=== PATIENT | female | born 1945 | race Caucasian/White ===

== ENCOUNTER 2018-11-13 17:15 | Inpatient (IN) | payer OTHER ==
[~2018-11-13] VITALS: Ht 162.6 cm; Wt 49.9 kg
[2018-11-13 17:17] VITALS: BP 134/58
[2018-11-13 17:54] LABS: ABSOLUTE NEUTROPHILS 7.3 thou/uL (1.4-8.2); BASOPHILS 1.3 % (0.0-2.0); EOSINOPHILS 5.4 % (0.0-3.0); HEMATOCRIT 36.4 % (37.0-47.0); HEMOGLOBIN 12.1 gm/dL (12.0-15.0); LYMPHOCYTES 18.7 % (24.0-44.0); MCH 27.9 pg (26.0-34.0); MCHC 33.1 g/dL (28.0-37.0); MCV 84.1 fL (80.0-100.0); MONOCYTES 5.7 % (1.0-8.0); PLATELET COUNT 254 thou/uL (150-400); POLYS 68.9 % (36.0-66.0); RBC 4.32 mil/uL (4.20-5.00); RDW 17.4 % (10.5-14.5); WBC 10.6 thou/uL (4.0-11.0)
[2018-11-13 18:00] LABS: URINE BILIRUBIN NEGATIVE (Negative); URINE BLOOD 3+ (Negative); URINE CLARITY CLEAR; URINE COLOR YELLOW; URINE GLUCOSE-RANDOM* NEGATIVE (Negative); URINE KETONES NEGATIVE (Negative); URINE PROTEIN (DIPSTICK) 2+ (Negative); URINE SPECIFIC GRAVITY 1.015 (1.005-1.035); URINE UROBILINOGEN 0.2 E.U./dl (0.2-1.0)
[2018-11-13 18:01] LABS: CALCIUM 9.5 mg/dL (8.5-10.1); CREATININE 0.9 mg/dL (0.6-1.0); POTASSIUM 4.4 mmol/L (3.5-5.1)
[2018-11-13] MEDS ORDERED: AMARYL2 MG PO (18:02)
[2018-11-13] MEDS ORDERED: SPIRIVA INH (18:03)
[2018-11-13] MEDS ORDERED: ARIMIDEX PO (18:03)
[2018-11-13 18:05] LABS: URINE LEUKOCYTES-REFLEX 3+ (Negative); URINE NITRITE-REFLEX POSITIVE (Negative)
[2018-11-13] MEDS ORDERED: EFFEXOR XR37.5 MG PO (18:05)
[2018-11-13 18:06] LABS: SALICYLATE < 2.8 mg/dL (2.8-20.0)
[2018-11-13] MEDS ORDERED: CLARITIN10 MG PO (18:06)
[2018-11-13] MEDS ORDERED: IBUPROFEN 400400 M2 PO (18:07)
[2018-11-13] MEDS ORDERED: ONDANSETRON HCL4 M2 PO (18:07)
[2018-11-13] MEDS ORDERED: HYDROXYZINE HCL25 M1 PO (18:07)
[2018-11-13 18:08] LABS: ALBUMIN 3.2 g/dL (3.4-5.0); TOTAL BILIRUBIN 0.3 mg/dL (<0.1-1.0); TOTAL PROTEIN 6.7 g/dL (6.4-8.2)
[2018-11-13] MEDS ORDERED: SALINE NASAL SP88 ML NASAL (18:08)
[2018-11-13 18:09] LABS: AMP/METHAMP Negative (Negative); BARBITURATES Negative (Negative); BENZODIAZEPINES Negative (Negative); COCAINE Negative (Negative); METHADONE Negative (Negative); OPIATES POSITIVE (Negative); PCP Negative (Negative)
[2018-11-13] MEDS ORDERED: QUETIAPINE FUM100 MG PO (18:09)
[2018-11-13] MEDS ORDERED: ARICEPT 5 MG TAB5 MG PO (18:09)
[2018-11-13] MEDS ORDERED: CHOLESTYRAMINE P4 GM PO (18:10)
[2018-11-13] MEDS ORDERED: GABAPENTIN 100100 MG PO (18:11)
[2018-11-13] MEDS ORDERED: ACETAMINOPHEN-1 EAC1 PO (18:12)
[2018-11-13] MEDS ORDERED: COMPAZINE10 MG PO (18:12)
[2018-11-13] MEDS ORDERED: ATIVAN1 MG PO (18:13)
[2018-11-13] MEDS ORDERED: VANCOCIN 125 M125 M1 PO (18:14)
[2018-11-13] MEDS ORDERED: BUSPIRONE HCL10 MG PO (18:14)
[2018-11-13 18:16] LABS: SQUAMOUS 0-3 Few /LPF (0-3)
[2018-11-13 18:17] LABS: BACTERIA-REFLEX 1-9 Few /HPF (None Seen); CASTS None Seen /LPF (None Seen); CRYSTALS None Seen /LPF (None Seen); WBC CLUMPS Few (None Seen)
[2018-11-13 19:35] VITALS: BP 134/44
[2018-11-13 21:52] VITALS: BP 146/87
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
[2018-11-14 07:15] VITALS: BP 110/66
--- NOTE | 2018-11-14 08:25 | EKG ---
[address] [place] [address] ELECTROCARDIOGRAM REPORT Name: JOHN MORAN Room #: [facility]- ADM IN M.R.#: [id number] ������������������ Admission: 11/13/18 ������������������ Attend Phys: Zane Tyler DO Discharge: ������������������ Date of : 41 Report #: [id number] ����������������������������������������������������������������� [id number] THIS REPORT FOR: //name// [facility] ED Test Date: 2018-11-13 Test Time: 17:39:18 Pat Name: JOHN MORAN Department: Room: [facility] Gender: F Nurse Staff [facility]: ÁNGEL : 1945 Requested By: Reid Ramos Order Number: [id number] MD: Akil Storey Measurements Intervals [place] Rate: 87 P: 68 OR: 166 QRS: 73 QRSD: 193 T: 19 QT: 361 QTc: 435 Interpretive Statements Sinus rhythm Nonspecific T-wave abnormality No previous ECG available for comparison Electronically Signed On 11-14-2018 8:25:11 CDT by Akil Storey [email or web address] ��������������������������������������������� <ELECTRONICALLY SIGNED> ���������������������������������������� By: Akil Storey MD ��������������������������������������������� 11/14/18 0825 [id number] Akil Storey MD /KYLAH
[2018-11-14 11:47] VITALS: BP 110/66
--- NOTE | 2018-11-14 12:31 | NUR ---
ASSUMED CARE AT 0700 TODAY. PT. IN BED WHEN DAY SHIFT STAFF ARRIVED. SHE HAD BM IN THE BED. SHE WAS SET ON BED SIDE COMODE, CLEANED UP, CLOTHES CHANGED AND HELPED TO HER W/C. SHE WENT TO THE DINING ROOM FOR BREAKFAST. DURING THAT TIME, SHE WAS CONSTANTLY PUSHING ON HER W/C, YELLING OUT PLEASE, AND A LOT OF CLONIC MOVEMENTS NOTED. AFTER BREAKFAST SHE WAS ALLOWED TO LAY DOWN IN BED. SHE STAYED IN BED UNTIL SHE GOT UP FOR LUNCH. HER MOVEMENTS WERE LESS PRONOUNCED AT THAT TIME. WAS ABLE TO FEED HERSELF. SHE IS ON OXYGEN PER NASAL CANNULA AT 4 LITERS A MINUTE.
[2018-11-14 19:42] VITALS: BP 103/76
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
[2018-11-14 22:46] VITALS: BP 103/76
--- NOTE | 2018-11-14 23:01 | NUR ---
TOOK 2100 MEDICATIONS WHOLE WITH WATER. ACCUCHECK 109, NO S/S INSULIN REQUIRED. WILL CONTINUE TO MONITOR Q12 MINUTE CHECKS FOR PT SAFETY.
--- NOTE | 2018-11-15 06:05 | NUR ---
Slept 7.6 hours.
--- NOTE | 2018-11-15 13:09 | NUR ---
ASSUMED PT CARE REPORT RECEIVED FROM NURSE. PT IS AOX3 FORGETFUL. JERKING MOVEMENTS DUE TO MARYCARMEN'S DISEASE NOTICED. PT ON 4 L OF OXYGENATION VIA NASOCANULA CONTINUOUSLY. NURSE HAS TO REPEATEDLY FIX THE CANULA IN PT NOSE BECAUSE PT KEEPS MOVING IT OUT. PT IS CONTINENT OF BLADDER BUT HAS URINARY FREQUENCY. PT DRINKS LOTS OF COFFE. GOOD APPETITE. ABLE TO FEED SELF. USES A WHEELCHAIT TO TRANSFER. INTERACTIVE AND PARTICIPATES IN GROUPS. COMPLAINS OF PAIN IN BILATERAL LEGS. NURSE ASSESSED LEGS WHICH ARE BOTH NORMAL TEMPERATURE TO TOUCH. PEDAL PULSES FELT +1 PT SAYS THE PAIN LEVEL IS 6. TYLENOL GIVEN FOR PAIN ORDERED. WILL CONTINUE TO MONITOR PT
[2018-11-15 19:12] VITALS: BP 115/64
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
--- NOTE | 2018-11-15 22:18 | NUR ---
Pt less restless and following directions, relaxing bed. Compliant with meds and oxygen and remains on 1:1.
--- NOTE | 2018-11-16 05:42 | NUR ---
the pt only slept 1.6 hours last night.
[2018-11-16 07:40] VITALS: BP 100/77
--- NOTE | 2018-11-16 12:09 | NUR ---
Assess due to borderline low BMI of 18.9. Admit to Senior Behavioral Health Unit with dementia. Hx DM, BG are controlled. Intake improving, yesterday ate 100% plus took HS snack. Low nutrition risk
[2018-11-16 14:13] VITALS: BP 100/77
--- NOTE | 2018-11-16 14:20 | NUR ---
ASSUMED CARE AT 0700 TODAY. PT. UP DRESSED AND ON THE UNIT. SHE HAS BEEN ON 1:1 UNITL JUST AFTER LUNCH AND THEN THE 1:1 WAS D/C'D. PT. HAS BEEN COOPERATAIVE WITH MEDICATIONS, GROUPS. NO S/S OR VERBALIZATION OF HI/SI AND AVH. HAS BEEN NOTED TWLLING THE PATIENTS TO COME TO GROUP. AT ONE TIME TODAY SHE TOOK OFF HER OXYGEN, STOOD UP AND STARTED TO WALK AWAY FROM THE DINING ROOM. STAFF ADDRESSED THE SITUATION SUCCESSFULLY. ASKED HER IF SHE WANTED TO LAY DOWN AFTER LUNCH, BUT SHE DECLINED.
[2018-11-16 19:38] VITALS: BP 100/42
--- NOTE | 2018-11-16 21:40 | NUR ---
Pt was resting in bed upon arrival to shift. Compliant with o2 per nc and hs meds and hs snack. Pt requested to get up around 2130 to dayroom. Once in dayroom pt was restless, standing up and down, cursing and yelling at aides. Not able to be verbally redirected to a conversation without yelling or cursing. Pt not being able to be distracted to remain sitting in chair. PRN for agiation provided. Pt calmed approximately 30 minutes and requested to return to bed. Pt used BSC, formed stool and went to bed.
--- NOTE | 2018-11-17 06:38 | NUR ---
Pt had bm this am. Pt continues with continued chorea movements. Pt counting repeatedly from 1 to 50 but numbers are not in order.
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
[2018-11-17 10:40] VITALS: BP 122/78
[2018-11-17 12:33] VITALS: BP 122/78
--- NOTE | 2018-11-17 14:13 | NUR ---
Flory appears to be having a hard time breathing. She is thrusting forward in her w/c, with her body and gasping to take breaths. Her O2 sat was 96 on 4L continuous O2. was notified.
--- NOTE | 2018-11-17 15:51 | NUR ---
ASSUMED CARE AT 0700 TODAY. PT. UP AND ON THE UNIT. SHE HAD A LARGE BM EARLY IN THE MORING. SHE HAS REPORTED TO THE NURSE WHEN SHE NEEDED TO UTILIZE THE BATHROM. SHE WAS UP FOR MEALS, GROUPS. TOOK MEDICATIONS WITHOUT DIFFICULTY. ABOUT 4PM SHE STARTED TAKING HER OXYGEN OFF AND GIRATING OVER THE UNIT YELLING AT [facility]ERS AND YELLING FOR STAFF. SHE WAS GIVEN QUETIAPINE PRN. SHE ALSO WAS TOLD TO NOT YELL AT [facility]. SHE SAT QUIETLY FOR A WHILE
--- NOTE | 2018-11-17 17:03 | NUR ---
Pt was yelling at staff, and peers. Pt was utilinzing her wheelchair inappropriate manner that cause her to choke on her O2 tube due to it been out of reach. Pt was given a PRN to assist with agitation, and aggression. Pt was not redirectable, Pt is unsetady on the feet, and pt continue ignore staff when asked if she remain seated. SW discuss with pt with the risk of being unsteady on her feet could potentially cause her to fall. Pt mention she will not listen to anyone due to her being grown, and she can do as she please. SW will continue to assist pt with her behaviors.
[2018-11-17 20:13] VITALS: BP 118/51
--- NOTE | 2018-11-17 22:28 | NUR ---
Pt resting in bed upon admission. Pt compliant with o2 per nc, hs meds, pt declined hs snack. Pt not having alot of jerky movements this rebekah, pt smiling, good eye contact.
--- NOTE | 2018-11-18 05:53 | NUR ---
Pt incontinent x 1 during the night, but urinated x2 during adl care this am.
[2018-11-18 09:18] VITALS: BP 95/53
[2018-11-18] MEDS ORDERED: TYLENOL EXTRA500 MG PO (10:20)
[2018-11-18] MEDS ORDERED: EFFEXOR XR75 MG PO (10:23)
[2018-11-18] MEDS ORDERED: SEROQUEL 25 MG25 M1 PO (10:24)
[2018-11-18] MEDS ORDERED: SEROQUEL 50 MG50 MG PO (10:26)
[2018-11-18] MEDS ORDERED: ATIVAN0.5 MG PO (10:27)
--- NOTE | 2018-11-18 14:41 | NUR ---
Patient Name: JOHN MORAN Admission Date: 11/13/18 DISCHARGE PLAN: Pt was discharge to [facility]. Care Assessment: Pt was assessed by Dr. Tyler, and diagnosed with Major Neurocognitive Disorder Level II Assessment: None Transportation: Pt was transported by [facility] Special Instructions/Notes: Pt will need a memory care unit DISCHARGE TO FACILITY: Memory Care unit Facility Name: [facility] Address: [address] [place] [address] Contact Name: Patience PCP: Psychiatrist: MARIELLE Psychiatrist
--- NOTE | 2018-11-18 14:44 | NUR ---
DISCHARGE INSTRUCTIONS,SURVEY,BELONGINGS INVENTORY COMPLETED WITH PT -SHE STATES UNDERSTANDING-DENIES C/O PAIN/DISCOMFORT AT TIME OF DISCHARGE-DOES REPORT FEELING ANXIOUS AND RATES ANXIETY A 6 ON 1-10 SCALE-DOES REPORT SOME RELIEF FOLLOWING ADMINISTRATION OF ATIVAN 0.25MG AT 1330-STATES SHE IS HAPPY TO BE LEAVING BUT STATES SHE THINKS SHE IS GOING TO DAUGHTERS HOME. BP LOW THIS AM AT 98/54 BUT DENIES DIZZINESS/LIGHTHEADNESS-BP RECHECK AT 1300 BP 108/68-REPORT CALLED TO BENJAMIN AT [facility]DC MED ORDERS FAXED PER REQUEST OF DANIEL-PT LEFT UNIT AT APPROX 1430 IN WHEELCHAIR-WEARING O2 4 LITERS VIA NASAL CANNULA-ACCOMPNIED BY DISPATCHER SERVICE OR WORK/STAFF-DENIES C/O AT TIME OF DC
--- NOTE | 2018-11-20 05:43 | D ---
[facility] [place] [address] DISCHARGE SUMMARY Name: JOHN MORAN Room #: 520B-B [facility] IN M.R.#: [id number] Admission: 11/13/18 ������������������ Attend Phys: Zane Tyler DO Discharge: 11/18/18 ������������������ Date of : 41 Report #: [id number] THIS REPORT FOR: //name// CC: Zane Tyler NATHALIA FARHANA DATE OF SERVICE: 11/18/2018 ATTENDING PHYSICIAN: Zane Tyler DO. LIMNOLOGIST: Kevin Benites MD. 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 MEDICAL COMORBIDITIES: Include UTI, completed treatment on Bactrim. C. difficile, the patient has completed antibiotics at this point. COPD chronic on oxygen 2-4 liters; history of paroxysmal atrial fibrillation; hypothyroidism; history of breast cancer. LABORATORY DATA: Done on 11/13/2018. Hematology: H and H 12.1 and 36.4. White count 10.6, platelet count 254, segmented neutrophil percentage 68.9, which is high; lymphocytes percentage 18.7, which was low; eosinophil percentage which is 5.4, which is high. Urinalysis showed 2+ protein, 3+ blood and nitrites were positive, 3+ leukocyte esterase,numerous white blood cells, bacteria. Urine culture was actually negative. REASON FOR ADMISSION: As follows. [facility] in [place], [place], due to increased adverse behaviors, threatening staff and yelling at people. HOSPITAL COURSE: The patient was admitted to Geriatric Psychiatry Unit. Supposedly, she was not requiring oxygen , but this was quickly determined not to be the case, so her stay was somewhat limited by the need to be on cannulated oxygen at all times. So, that was skipped up as best it could be. Went ahead and put her on scheduled quetiapine at a dose of 25 mg at 0900 and 1500. Other measures done, given her 50 of quetiapine at 2200. The patient had increased involuntary movements this past weekend with marked restlessness and I made the election to give her low dose 0.25 mg of lorazepam scheduled t.i.d. She clinically improved with this. There were no physical or chemical restraints since admission. DISCHARGE MEDICATIONS: Tylenol 500 mg p.o. q. 4 hours p.r.n. for pain; [address] [address] DISCHARGE SUMMARY Name: JOHN MORAN Room #: 520B-B [facility] IN M.R.#: [id number] Admission: 11/13/18 ������������������ Attend Phys: Zane Tyler, Discharge: 11/18/18 ������������������ Date of : 41 Report #: [id number] venlafaxine XR 75 mg p.o. daily for depression, quetiapine 50 mg 1 tab p.o. at 2200, 25 mg p.o. b.i.d. at 0900 and 1500, diazepam 0.25 t.i.d., 30-day prescription given today. Continuation of meds would be Arimidex, aromatase inhibitor, 1 mg p.o. daily for breast cancer, Spiriva HandiHaler daily, loratadine 10 mg p.o. daily for allergies, cholestyramine 4 grams p.o. b.i.d., for high cholesterol, gabapentin 200 mg p.o. t.i.d. for pain. I did not see a good role for cognitive enhancers with her Galveston's related dementia. VITAL SIGNS: On the day of discharge, temperature 36.8, pulse 82, respirations 20, BP 95/53, O2 sat 93% on the 2 liters of home oxygen. MENTAL STATUS EXAMINATION: This is a well-developed, well-nourished female with choreoathetotic movements frequently in wheelchair. Attention intact. Concentration intact. Speech is normal rate and volume and tone Thorught process- linear-limited. Thought content, some poverty of thought. No psychomotor retardation. No psychomotor agitation. Denied SI, HI. Some hopelessness and helplessness. Insight limited. Judgment limited. Fund of knowledge, no greater than average. EKG on 11/13/2018 showed a QTc of 435, rate of 87, ME interval of 166. Prognosis- guarded to poor ��������������������������������������������� <ELECTRONICALLY SIGNED> ���������������������������������������� By: Zane Tyler DO ��������������������������������������������� 11/20/18 0543 [id number] Zane Tyler DO /nt
== END 2018-11-18 14:30 | DRG 57 ==
LOC: ER 17:15 → SBH 18:41 → EROBS 18:41 → SBH 19:44
PROVIDERS: Emergency Medicine; Physician Assistant; ADMIT Psychiatry & Neurology Psychiatry
DX: G10 Huntington's disease (principal); N39.0 Urinary tract infection, site not specified; F02.81 Dementia in other diseases classified elsewhere, unspecified severity, with behavioral disturbance; J44.9 Chronic obstructive pulmonary disease, unspecified; E11.9 Type 2 diabetes mellitus without complications; I10 Essential (primary) hypertension; G47.00 Insomnia, unspecified; E03.9 Hypothyroidism, unspecified; I48.2 Chronic atrial fibrillation; Z79.899 Other long term (current) drug therapy; Z88.6 Allergy status to analgesic agent; Z90.710 Acquired absence of both cervix and uterus; Z85.3 Personal history of malignant neoplasm of breast
CPT/HCPCS: 10880